=== PATIENT | male | born 1995 | race Caucasian/White ===

== ENCOUNTER 2019-10-07 10:39 | Emergency (ER) | payer OTHER ==
[~2019-10-07] VITALS: Ht 165.1 cm; Wt 72.6 kg
[2019-10-07 10:40] VITALS: BP 146/84
[2019-10-07 10:45] VITALS: BP 142/84
--- NOTE | 2019-10-07 10:45 | NUR ---
ED Nurse Note: Pt walked in from home c/o "ringing in the ears" and "feeling weird" d/t smoking unknown dose of fentanyl this morning around 0900. Pt is tachycardic and showing tremors. Respirations even and unlabored on room air. Vitals stable as documented. Pt placed on monitor.
--- NOTE | 2019-10-07 12:15 | NUR ---
ELOPEMENT: Pt complaining about being thirsty and said he was gonna leave to get himself something to drink. IV site removed, but patient refused to stay and talk about results and discharge. ID band removed.
--- NOTE | 2019-10-07 12:20 | Emergency Room Report ---
History of Present Illness General Chief Complaint: Substance Abuse Source: Patient Present Illness HPI 24-year-old male history of substance abuse presents with being found down earlier this morning, patient smoked fentanyl, stated that he was having a relapse, patient initially presented with altered level of consciousness before arriving to the ED aggravated by fentanyl alleviated by nothing severity was moderate, constant lasting minutes patient is currently asymptomatic states he feels fine Allergies: Coded Allergies: No Known Allergies (Unverified , 12/03/15) Patient History Past Medical History: see triage record Social History: Reports: drug use - Fentanyl abuse Reviewed Nursing Documentation: PMH: Agreed; PSxH: Agreed Nursing Documentation-PMH Past Medical History: No Stated History Review of Systems All Other Systems: limited Physical Exam Vital Signs Date Time Temp Pulse Resp B/P (MAP) Pulse Ox O2 Delivery O2 Flow Rate FiO2 10/07/19 10:40 98.2 123 19 146/84 (104) 94 Room Air Sp02 EP Interpretation: reviewed, normal General Appearance: well appearing, no apparent distress, alert Head: normocephalic, atraumatic Eyes: bilateral eye PERRL, bilateral eye EOMI ENT: uvula midline, moist mucus membranes Neck: supple, thyroid normal, supple/symm/no masses Respiratory: lungs clear, no respiratory distress, no retraction, no accessory muscle use Cardiovascular #1: normal peripheral pulses, no edema, no gallop, no murmur, tachycardia Gastrointestinal: non tender, soft, no guarding, no rebound Musculoskeletal: normal inspection Neurologic: alert, oriented x3 Psychiatric: mood/affect normal Skin: no rash, warm/dry Medical Decision Making Diagnostic Impression: Primary Impression: Drug overdose Qualified Codes: T50.901A - Poisoning by unspecified drugs, medicaments and biological substances, accidental (unintentional), initial encounter ER Course 24-year-old male presents with most likely a fentanyl overdose differential diagnosis includes other unspecified opioid overdose, other drug overdose Patient is asymptomatic tachycardic, fluid started Reevaluation at 12:15 PM patient eloped from the ED Last Vital Signs Date Time Temp Pulse Resp B/P (MAP) Pulse Ox O2 Delivery O2 Flow Rate FiO2 10/07/19 10:45 98.2 115 19 142/84 94 Room Air Disposition: ELOPED Condition: Stable Referrals: NOT CHOSEN IPA/,REFERRING (PCP) [facility] Patient Instructions: Opioid Use Disorder Additional Instructions: The patient was provided with discharge instructions, notified to follow-up with a primary care doctor and or specialist in the next 24-48 hours, and to return to the ED if they have worsening of their symptoms. Please note that this report is being documented using DRAGON technology. This can lead to erroneous entry secondary to incorrect interpretation by the dictating instrument. Rosalino Ellis MD Oct 07, 2019 12:20
--- NOTE | 2019-10-07 13:41 | Diagnostic Imaging Report ---
Indication: Chest pain Technique: One view of the chest Comparison: none Findings: Lungs and pleural spaces are clear. Heart size is normal. Impression: No acute process
== END 2019-10-07 12:15 | disposition left against medical advice (07) ==
LOC: EMR 11:40
DX: T50.901A Poisoning by unspecified drugs, medicaments and biological substances, accidental (unintentional), initial encounter (principal); X58.XXXA Exposure to other specified factors, initial encounter; Y92.9 Unspecified place or not applicable
CPT/HCPCS: 71045; 96360; 99284; J7030